=== PATIENT | female | born 1945 | race Caucasian/White ===

== ENCOUNTER → 2016-03-09 | Outpatient (CLI) | payer OTHER, MEDICARE | END | disposition home or self-care (01) | LOC: C.PAPS 13:44 | PROVIDERS: ATTEND Obstetrics & Gynecology | DX: Z12.4 Encounter for screening for malignant neoplasm of cervix (principal) ==

== ENCOUNTER → 2016-05-12 | Outpatient (CLI) | payer OTHER, MEDICARE ==
[2016-05-12 13:25] LABS: HEMATOCRIT 41.8 % (37-47); MEAN CELL VOLUME 93.3 fL (80-100); MEAN CORPUSCULAR HEMOGLOBIN 32.4 pg (25-34); MEAN CORPUSCULAR HGB CONC 34.7 g/dl (32-36); MEAN PLATELET VOLUME 11.5 fL (7.4-10.4); PLATELET COUNT 283 K/uL (130-400); RED BLOOD COUNT 4.48 M/uL (4.2-5.4)
[2016-05-12 13:42] LABS: ALT/SGPT 22 U/L (12-78); AST/SGOT 24 U/L (15-37); BLOOD UREA NITROGEN 15 mg/dl (7-18); BUN/CREATININE RATIO 14.7 (10-20); CALCIUM 9.3 mg/dl (8.5-10.1); CARBON DIOXIDE 23 mmol/L (21-32); CHLORIDE 109 mmol/L (98-107); CHOLESTEROL 219 mg/dl (0-200); GLUCOSE 88 mg/dl (70-99); SODIUM 142 mmol/L (136-145); TRIGLYCERIDES 139 mg/dl (0-150); URIC ACID 5.5 mg/dl (2.6-7.2); VERY LOW DENSITY LIPOPROT CALC 28 mg/dl
[2016-05-12 13:45] LABS: ALB/GLOB RATIO 0.8 (0.9-2); ALKALINE PHOSPHATASE 138 U/L (45-117); CHOLESTEROL/HDL RATIO 3.8; HDL CHOLESTEROL 58 mg/dl; LDL CHOLESTEROL CALCULATED 133 mg/dl
[2016-05-12 13:53] LABS: ESTIMATED AVERAGE GLUCOSE 111 mg/dl; HA1C FLAG Normal (Normal)
--- NOTE | 2016-05-19 07:33 | CODING QUERY MEDICAL NECESSITY ---
SUPPORTING DIAGNOSIS NEEDED A supporting diagnosis is required for the test/procedure performed on this patient in order for us to be reimbursed by the patient's insurance. Please provide a supporting diagnosis for the following test/procedure listed below next to the test name along with your signature. *If there is no additional diagnosis for this patient that would support the following test/procedure please document that below next to the test/procedure. Test(s)/Procedure(s) that require a supporting diagnosis: * VITAMIN D 25-HYDROXY DIAGNOSIS: * GLYCATED HEMOGLOBIN DIAGNOSIS: * DOS: 05/12/16 Provider Signature: Date: Thank you Lauren Man Health Information Management Once completed, please kindly fax back to [phone] For questions please call [phone]
== END | disposition home or self-care (01) ==
LOC: C.LABPBG 08:05
PROVIDERS: ATTEND Family Medicine
DX: Z00.00 Encounter for general adult medical examination without abnormal findings (principal)

== ENCOUNTER → 2016-12-14 | Outpatient (CLI) | payer OTHER, MEDICARE ==
--- NOTE | 2016-12-15 07:42 | MAMMOGRAPHY REPORT ---
BILATERAL DIGITAL SCREENING MAMMOGRAM TOMOSYNTHESIS WITH CAD: 12/14/2016 CLINICAL HISTORY: Routine screening. Patient has no complaints. TECHNIQUE: Breast tomosynthesis in addition to standard 2D mammography was performed. Current study was also evaluated with a Computer Aided Detection (CAD) system. COMPARISON: Comparison is made to exams dated: 12/11/2015 mammogram, 11/26/2014 mammogram, 05/17/2014 m ammogram, 09/21/2013 mammogram, 05/12/2011 mammogram, and 04/12/2009 mammogram - [facility]. BREAST COMPOSITION: There are scattered areas of fibroglandular density in both breasts. FINDINGS: There is a focal asymmetry in the upper outer middle one third of the left breast, with po ssible associated architectural distortion, for which additional spot compression tomosynthesis views and possible ultrasound are recommended. Otherwise, there is fluctuating nodularity in the breasts. Scattered benign-appearing calcifications . No other suspicious mass, architectural distortion or cluster of microcalcifications is seen. IMPRESSION: ACR BI-RADS CATEGORY 0: INCOMPLETE EVALUATION: NEED ADDITIONAL IMAGING EVALUATION The focal asymmetry with possible associated architectural distortion in the upper outer quadrant of the left breast needs additional evaluation. The patient will be called to schedule an appointment. Approximately 10% of breast cancers are not detected with mammography. A negative mammographic report should not delay biopsy if a clinically suggestive mass is present. Vielka Fitch M.D. ay/:12/14/2016 16:43:19 Waterproof Coating Machine Tender: Beckie DIXON(Jonnathan)(Brittanie), [facility] letter sent: Addl Imaging 0 BI-RADS Code: ACR BI-RADS Category 0: Incomplete Evaluation: Need Additional Imaging Evaluation
== END | disposition home or self-care (01) ==
LOC: C.MAMM 09:19
PROVIDERS: ATTEND Family Medicine
DX: Z12.31 Encounter for screening mammogram for malignant neoplasm of breast (principal); N64.89 Other specified disorders of breast; R92.8 Other abnormal and inconclusive findings on diagnostic imaging of breast

== ENCOUNTER → 2016-12-21 | Outpatient (CLI) | payer OTHER, MEDICARE ==
--- NOTE | 2016-12-21 13:34 | MAMMOGRAPHY REPORT ---
UNILATERAL LEFT DIGITAL DIAGNOSTIC MAMMOGRAM TOMOSYNTHESIS AND TARGETED LEFT ULTRASOUND: 12/21/2016 CLINICAL HISTORY: 71-year-old woman called back from screening mammography for a focal asymmetry with possible associated architectural distortion in the upper outer middle one third of the left breast. TECHNIQUE: Spot compression left CC and MLO views were obtained. COMPARISON: Comparison is made to exams dated: 12/14/2016 mammogram, 12/11/2015 mammogram, 11/26/2014 m ammogram, 05/17/2014 mammogram, 09/21/2013 mammogram, and 05/12/2011 mammogram - [facility]. BREAST COMPOSITION: There are scattered areas of fibroglandular density in the left breast. FINDINGS: There is a nodular asymmetry in the lateral, middle one third of the left breast best seen on the CC tomosynthesis images (slice 16/85). There is no definite persistent architectural distort ion in this projection. The asymmetry is seen near the bar of the spot compression paddle in the sli ghtly inferior middle one third of the left breast on the spot compression MLO view, but no definite persistent distortion is seen on those images either. No other focal area of distortion or suspiciou s spiculated or irregular mass is identified. There are stable circumscribed benign-appearing masses in the medial left breast. Further evaluation with ultrasound was performed. Targeted ultrasound was performed in the lateral left breast, approximate 3:00 and 4:00 axes. In the 3:00 left breast, 6 cm from the nipple, there is a grouping of anechoic benign simple cysts, measuri ng approximately 4.2 x 4.8 mm in conglomerate. These likely correspond to the nodular mammographic a symmetry and no distortion is appreciated near the cysts in real-time scanning. There is no evidence of a suspicious solid mass. IMPRESSION: ACR BI-RADS CATEGORY 2: BENIGN, TARGETED ULTRASOUND ACR BI-RADS CATEGORY 2: BENIGN There is no persistent architectural distortion with the asymmetry in the 3:00 middle one third of th e left breast mammographically, and a grouping of benign cysts is seen in the 3:00 left breast, 6 cm from the nipple on ultrasound. There is no evidence of a suspicious mass or suspicious area of archi tectural distortion. The cysts are considered benign and recommend routine screening tomosynthesis m ammography in one year. These results and recommendations were discussed with the patient at the time of the exam. Approximately 10% of breast cancers are not detected with mammography. A negative mammographic report should not delay biopsy if a clinically suggestive mass is present. Vielka Fitch M.D. ay/:12/21/2016 10:18:50 Ocular Care Aide: Beckie DIXON(R)(M), [facility] letter sent: Normal 1/2 BI-RADS Code: ACR BI-RADS Category 2: Benign Ultrasound BI-RADS: ACR BI-RADS Category 2: Benign
== END | disposition home or self-care (01) ==
LOC: C.MAMM 08:35
PROVIDERS: ATTEND Family Medicine
DX: N64.89 Other specified disorders of breast (principal); N60.02 Solitary cyst of left breast

== ENCOUNTER → 2017-05-13 | Outpatient (CLI) | payer OTHER, MEDICARE ==
[2017-05-13 12:38] LABS: HEMATOCRIT 44.6 % (37-47); HEMOGLOBIN 15.4 g/dL (12.0-16.0); MEAN CELL VOLUME 92.3 fL (80-100); MEAN CORPUSCULAR HEMOGLOBIN 31.9 pg (25-34); MEAN CORPUSCULAR HGB CONC 34.5 g/dl (32-36); MEAN PLATELET VOLUME 11.7 fL (7.4-10.4); PLATELET COUNT 301 K/uL (130-400); RED CELL DISTRIBUTION WIDTH CV 12.5 % (11.5-14.5); RED CELL DISTRIBUTION WIDTH SD 42.2 fL (36.4-46.3); WHITE BLOOD COUNT 6.02 K/uL (4.8-10.8)
[2017-05-13 16:37] LABS: BLOOD UREA NITROGEN 16 mg/dl (7-18); CALCIUM 9.5 mg/dl (8.5-10.1); CARBON DIOXIDE 23 mmol/L (21-32); CHOLESTEROL 233 mg/dl (0-200); CREATININE 0.98 mg/dl (0.60-1.20); GLUCOSE 89 mg/dl (70-99); POTASSIUM 4.4 mmol/L (3.5-5.1); SODIUM 138 mmol/L (136-145)
[2017-05-13 16:41] LABS: LDL CHOLESTEROL CALCULATED 151 mg/dl
== END | disposition home or self-care (01) ==
LOC: C.LABPBG 07:39
PROVIDERS: ATTEND Family Medicine
DX: Z11.59 Encounter for screening for other viral diseases (principal); E78.00 Pure hypercholesterolemia, unspecified; E55.9 Vitamin D deficiency, unspecified; M85.80 Other specified disorders of bone density and structure, unspecified site; Z00.00 Encounter for general adult medical examination without abnormal findings

== ENCOUNTER 2023-08-04 18:25 | Inpatient (IN) ==
--- NOTE | 2023-08-04 18:56 | ED Triage Note ---
Date of Service August 04, 2023 Provider in Triage Author: Cheri Bacon History of Present Illness This patient was briefly evaluated while in triage. An abbreviated physical exam was performed. This patient is a 77-year-old Female who presents to the ED for evaluation of nausea. She had knee surgery last week and has been sick off and on since then, but very bad today. Nausea, but no vomiting. Denies fevers, redness, or discharge from the knee. Denies chest pain or SOB. No pain in her abdomen. She changed pain medications, but it didn't help. Physical Exam GENERAL: Non-toxic and in no acute distress. HEENT: Pupils equal. No obvious scleral icterus. HEART: Regular rate and rhythm. LUNGS: Clear to auscultation. No accessory muscle use. ABDOMEN: Soft, non-tender to palpation. NEURO: Alert and oriented. No obvious neurological deficits on quick neuro exam. MUSCULOSKELETAL: Bandage on left knee without obvious erythema. Initial orders for labs and / or imaging were placed and patient was placed in the waiting area until a bed is available. Please see further documentation for the full ED course.
--- NOTE | 2023-08-04 19:21 | Emergency Department Note ---
Impression & Plan Nausea, Hyponatremia ED Provider Note CHIEF COMPLAINT: Nausea HISTORY OF PRESENTING ILLNESS: This 77-year-old female patient presents emergency department for evaluation of nausea. The patient had left knee surgery on 07/29/[address] Mo. She states that she had been having intermittent nausea since that time. They tried adjusting her pain medication without improvement - switched from oxycodone to Tramadol. She is also on Celebrex. Today she got much more severe nausea. She states that she is not able to vomit. She has been having some constipation and trouble moving her bowels since the surgery. Has not had a BM for the past 2 days, mostly leaking stools. The patient denies any chest pain or shortness of breath. She denies any abdominal pain, but states that it feels "weird" in her abdomen. REVIEW OF SYSTEMS: See HPI for pertinent positives and pertinent negatives. ALLERGIES: Sulfa MEDICATIONS: Celebrex, aspirin, Tramadol, Zofran - does not remember her other medications. PAST MEDICAL HISTORY: See below PHYSICAL EXAM: VITALS: Vitals are noted on the nurse's note and reviewed by myself. GENERAL: Non toxic, no acute distress, non-diaphoretic. SKIN: The patient has a vacuum dressing in place over the left knee. The drain has already fallen out. No obvious erythema or edema of the left lower extremity in the area visualized. Capillary refill <2 sec. EYES: PERRLA. EOMI. Conjunctivae without injection, sclerae without icterus. NOSE: Patent without discharge. MOUTH: Mucous membranes moist. Uvula midline. Airway patent. NECK: Supple without nuchal rigidity. HEART: Regular rate and rhythm without murmurs gallops or rubs. LUNGS: Clear to auscultation bilaterally without wheezes, rales or rhonchi. No retractions or accessory muscle use. ABDOMEN: Positive bowel sounds x 4. Normal tympanic percussion. Soft, minimally tender to palpation centrally. No masses or organomegaly. Quinones sign negative. No guarding or rebound tenderness. No focal RLQ or LLQ tenderness. MUSCULOSKELETAL: No significant tenderness to palpation of the left knee. No significant tenderness to palpation of the left lower extremity. No calf pain, tenderness, swelling, or cording. Negative Homans' sign. Peripheral pulses 2+. NEURO: Patient was alert and oriented. No focal neurological deficits. DIFFERENTIAL DIAGNOSIS: Differential diagnosis includes hepatitis, pancreatitis, cholecystitis, cholelithiasis, appendicitis, kidney stone, pyelonephritis, UTI, gastritis, gastroenteritis, mesenteric adenitis, obstruction, constipation, hernia, abdominal abscess, perforation, diverticulitis, IBD, ischemic colitis, abdominal aortic aneurysm, , ectopic , ovarian cyst, ovarian torsion, acute salpingitis, or others. ED COURSE AND MEDICAL DECISION MAKING: HISTORY FROM INDEPENDENT HISTORIAN: Additional history was obtained from the patient's . MONITOR: Continuous political science instructor: Order was placed for continuous political science instructor. Patient was placed on the political science instructor and continuous pulse ox. Patient was noted to be in normal sinus rhythm at an initial rate of 88 bpm per my interpretation. MEDICATIONS GIVEN: 700 mL normal saline solution bolus. Zofran 4 mg IV. Reglan 10 mg IV. Pepcid 20 mg IV. INTERPRETATION OF LABS: I interpreted the labs with full lab results as below in the lab section of this note. White blood cell count elevated at 12.34. Hemoglobin normal at 12.1. Platelet count elevated at 451. Sodium low at 126 and chloride 93. Glucose 116 and alk phos 156. CMP otherwise normal. Lipase normal. Urinalysis with trace ketones, but otherwise normal. INTERPRETATION OF IMAGING: Imaging studies were interpreted by myself and read by radiology as per the imaging section of this note. CT scan of the abdomen pelvis with IV contrast shows a moderate to large hiatal hernia as well as fluid and gas-filled small bowel loops which may represent enteritis in the appropriate clinical setting. No evidence for obstruction. CONSULTATIONS: On-call hospitalist MDM SUMMARY: The patient was seen during a time of extreme volume and extreme acuity. Nursing triage protocols were initiated with IV lock, labs, and/or imaging studies conducted by protocol in the triage area. The patient was initially evaluated in a triage room and then re-examined once they were taken back to an exam room. The patient had left knee surgery on 07/29/2023. She was initially discharged home with oxycodone, but then switched to tramadol due to nausea. She is also taking Celebrex. She was prescribed Zofran for the nausea, but continuing to have nausea. She is unable to vomit. Has also not been moving her bowels as well since the surgery. She denies any true abdominal pain, but states that her abdomen feels weird. She feels like the knee is healing well without problems. The patient was initially ordered 1 L of normal saline solution bolus. However, when her sodium came back low at 126, her IV fluids were stopped with 700 mL given to that point. The patient has not been eating or drinking well at home because of the nausea per her . The patient was medicated with IV Zofran, IV Reglan, and IV Pepcid with only minimal improvement of her nausea. The remainder of the laboratory studies as above. Urinalysis without evidence for UTI. CT scan of the abdomen and pelvis with IV contrast shows a moderate to large hiatal hernia as well as fluid and gas-filled small bowel loops which may represent an enteritis. However, the patient does not really have symptoms of enteritis at this time. The patient's symptoms may be secondary to her pain medication versus acid reflux from the Celebrex and her moderate to large hiatal hernia versus constipation contributing to the nausea and/or acid reflux versus other etiology. I do not feel the patient requires additional imaging in the ER at this time. I had a meaningful discussion about this patient with Dr. Moncada who agrees with my assessment and the treatment plan. I discussed admission with the patient due to her hyponatremia and nausea. Initially the patient thought she might want to be discharged home, but when her nausea was still not well- controlled, she requested admission. I spoke with the on-call hospitalist who agreed to admit the patient for further management. Please refer to their dictation for further details. The patient's care was transferred in stable condition. DIAGNOSIS: Nausea Hyponatremia Past Med/Surg History Problem List (Updated 08/05/23 @ 00:46 by Cheri Bacon PA-C) Hyponatremia (Acute) Nausea (Acute) Degenerative spondylolisthesis L4-5, L5-S1 Anterolisthesis of lumbar spine Left knee DJD Seborrheic keratoses Post-menopausal Actinic keratosis Spinal stenosis of lumbar region Following with pain management - s/p L5-S1 ELISE in 04/2023 T12 compression fracture 23 years ago Degenerative arthritis of lumbar spine Lumbar degenerative disc disease Hypertension pt denies - no medications Hypercholesteremia pt denies - no medications. Osteopenia Vitamin D deficiency Medical History History of COVID-2021: fatigued and cough at the time. Per patient- diagnosed by PCP with long covid- still experiencing occ fatigue and cough at times (improved from previous) Low back pain Surgical History S/P epidural steroid injection History of colonoscopy S/P cataract extraction bilateral S/P tonsillectomy Family History Father Emphysema lung Mother , Dec 2019 Diabetes Grandmother (Maternal) Diabetes Other No family history of adverse response to anesthesia Denies family history of Ovarian cancer Prostate cancer Myocardial infarction Breast cancer Colorectal cancer Social History Smoking Status: Never smoker Second Hand Exposure: No; Do You Dip or Chew Tobacco: No; Hx Alcohol Use: No Hx Substance Use: No Preferred Language: Ukrainian Communication Ability: Effective Visual Impairment: No Limitations Hearing Ability: Normal Software Tools Build Engineer Required: Yes Beliefs That Will Affect Care: None marital status: Current Living Situation: Spouse current occupational status: retired How many Children do You have: 4 Feels Safe at Home: Yes Safety Concerns: Feels Safe At This Time Childhood Exposure to Second-Hand Smoke: Yes Diet: regular Diet Comment: regular caffeine: Yes during the past year weight has: remained stable Dental Care, Regularly: Yes Physical Activity Frequency: Daily Seatbelt Use: always Sunscreen Use: Yes Assistive Devices: Cane and Denture - Upper Allergies Allergies Allergy/AdvReac Type Severity Reaction Status Date / Time Sulfa (Sulfonamide AdvReac Intermediate Gastrointestinal Verified 07/29/23 08:10 Antibiotics) Upset Home Meds Home Medications Medication Instructions Recorded Confirmed multivitamin 1 tab PO HS 02/11/19 08/04/23 docusate sodium 100 mg capsule 100 mg PO DAILY PRN Constipation 06/09/23 08/04/23 (Colace) acetaminophen 500 mg tablet 500 mg PO Q8 08/04/23 08/04/23 aspirin 81 mg tablet,delayed 81 mg PO BID 08/04/23 08/04/23 release celecoxib 200 mg capsule 200 mg PO BID 08/04/23 08/04/23 tramadol 50 mg tablet 50 mg PO Q4 PRN Pain 08/04/23 08/04/23 Previous Rx's Medication Instructions Recorded alendronate 70 mg tablet 70 mg PO WEEKLY #12 tabs 08/03/23 ondansetron 8 mg disintegrating 8 mg PO Q8H PRN nausea and 08/03/23 tablet vomiting #30 tabs Results & Data (ED) Vital Signs Vital Signs - 24 hr 08/04/23 18:54 08/04/23 20:18 08/04/23 22:00 Temperature 36.4 C L Temperature Source Temporal Artery Scan Pulse Rate 87 Pulse Rate [Finger] 82 69 Respiratory Rate 18 16 16 Respiratory Effort / Characteristics Non-Labored Non-Labored Non-Labored Respiratory Depth Normal Normal Normal Respiratory Pattern Regular Regular Blood Pressure 208/75 H Blood Pressure [Right Arm] 184/97 H 190/91 H Blood Pressure Mean 119 Blood Pressure Mean [Right Arm] 126 124 Blood Pressure Position [Right Arm] Lying Sitting Pulse Oximetry 97 92 93 Oxygen Delivery Method Room Air Room Air Room Air Sepsis Recent Fever Within 48 Hours No Sepsis New/Unexplained Change in Mental Status No Sepsis Action Taken by Nursing No Action Required Laboratory Data 08/04/23 19:39 08/04/23 19:39 Lab Results 08/04/23 Range/Units 19:39 WBC 12.34 H (4.8-10.8) K/ul RBC 3.96 L (4.20-5.40) M/uL Hgb 12.1 (12.0-16.0) g/dl Hct 35.5 L (37.0-47.0) % MCV 89.6 (80.0-100.0) fL MCH 30.6 (25.0-34.0) pg MCHC 34.1 (32.0-36.0) g/dL RDW Std Deviation 38.1 (36.4-46.3) fL RDW Coeff of Kenisha 11.7 (11.5-14.5) % Plt Count 451 H (130-400) K/uL MPV 10.8 (9.4-12.4) fL Immature Gran % (Auto) 0.2 % Neut % (Auto) 79.7 % Lymph % (Auto) 10.0 % [place] % (Auto) 8.7 % Eos % (Auto) 1.0 % Baso % (Auto) 0.4 % Neut # (Auto) 9.83 H (1.40-6.50) K/uL Lymph # (Auto) 1.24 (1.20-3.40) K/uL [place] # (Auto) 1.07 H (0.11-0.59) K/uL Eos # (Auto) 0.12 (0.00-0.50) K/uL Baso # (Auto) 0.05 (0.00-0.20) K/uL Immature Gran # (Auto) 0.03 (0.01-0.20) K/uL Sodium 126 L (136-145) mmol/L Potassium 4.2 (3.5-5.1) mmol/L Chloride 93 L (98-107) mmol/L Carbon Dioxide 23 (21-32) mmol/L Anion Gap 10 (3-11) BUN 17 (6-23) mg/dl Creatinine 0.86 (0.6-1.2) mg/dl Est Cr Clr Drug Dosing Not Reportable Est GFR ( Amer) 75.0 ml/min Est GFR (Non-Af Amer) 64.7 ml/min BUN/Creatinine Ratio 19.8 (10-20) Glucose 116 H (70-99(Fasting)) mg/dl Osmolality 269 L (280-300) mOsm/kg Calcium 9.0 (8.6-10.3) mg/dl Total Bilirubin 0.6 (0.2-1.0) mg/dl AST 18 (13-39) U/L ALT 14 (7-52) U/L Alkaline Phosphatase 156 H (34-104) U/L Total Protein 7.6 (6.0-8.3) gm/dl Albumin 3.6 (3.4-5.0) gm/dl Globulin 4.0 (2.5-4.0) gm/dl Albumin/Globulin Ratio 0.9 (0.9-2) Lipase 11 (11-82) U/L Administered Medications Potassium Chloride/Sodium Chloride (Normal Saline W/20 Meq Kcl) 20 meq in 1,000 mls @ 100 mls/hr IV .Q10H STA; Protocol Stop: 08/05/23 09:43 Last Admin: 08/04/23 23:54 Dose: 100 mls/hr Documented By: AAW Discontinued Medications Hydralazine HCl (Hydralazine Hcl 20 Mg/Ml Vial) 5 mg IV NOW STA Stop: 08/04/23 23:45 Last Admin: 08/04/23 23:54 Dose: 5 mg Documented By: CARIN Sodium Chloride (Nss) 1,000 mls @ 999 mls/hr IV .Q1H1M STA Stop: 08/04/23 19:56 Last Infusion: 08/04/23 20:38 Dose: Infused Documented By: Admin: 08/04/23 19:37 Dose: 999 mls/hr Documented By: LISA Famotidine (Pepcid 20mg Iv Push) 20 mg in 5 mls @ 2.5 mls/min IV NOW STA Stop: 08/04/23 22:09 Last Admin: 08/04/23 22:51 Dose: 2.5 mls/min Documented By: CARIN Ioversol (Optiray 320 100ml) 90 ml IV ONCE ONE Stop: 08/04/23 20:40 Last Admin: 08/04/23 20:39 Dose: 90 ml Documented By: TONE Metoclopramide HCl (Metoclopramide Hcl Inj 5 Mg/Ml 2 Ml Vial) 10 mg IV NOW STA Stop: 08/04/23 21:36 Last Admin: 08/04/23 21:45 Dose: 10 mg Documented By: CARIN Ondansetron HCl (Ondansetron Inj 2 Mg/Ml 2 Ml Vial) 4 mg IV NOW STA Stop: 08/04/23 18:57 Last Admin: 08/04/23 19:38 Dose: 4 mg Documented By: LISA Imaging Data Radiologist's Impression: Abdomen/Pelvis CT 08/04/23 19:38 Exam(s): CT ABDOMEN + PELVIS With Contrast IV Amt: 90 ml optiray 320 EXAM: CT Abdomen and Pelvis With Intravenous Contrast CLINICAL HISTORY: Reason for exam: abdominal pain, nausea. TECHNIQUE: Axial computed tomography images of the abdomen and pelvis with intravenous contrast. CTDI is 25.19 mGy and DLP is 1178.62 mGy-cm. Automated exposure control was utilized for the study. A dose lowering technique was utilized adhering to the principles of ALARA. CONTRAST: Patient received 90 ml optiray 320 of IV contrast COMPARISON: CT abdomen/pelvis on 05/19/2023 FINDINGS: Lung bases: Unremarkable. No mass. No consolidation. Mediastinum: Moderate to large hiatal hernia. ABDOMEN: Liver: Unremarkable. No mass. Gallbladder and bile ducts: Unremarkable. No calcified stones. No ductal dilation. Pancreas: Unremarkable. No mass. No ductal dilation. Spleen: Unremarkable. No splenomegaly. Adrenals: Unremarkable. No mass. Kidneys and ureters: Unremarkable. No hydronephrosis or obstructing ureteral stone. Stomach and bowel: Evaluation of the stomach is limited by underdistention. Diverticulosis without evidence of diverticulitis. No small bowel obstruction. Fluid and gas-filled small bowel loops may represent enteritis in the appropriate clinical setting. PELVIS: Appendix: Normal appendix. Bladder: Unremarkable. No mass. Reproductive: Unremarkable as visualized. ABDOMEN and PELVIS: Intraperitoneal space: Unremarkable. No free air. No significant fluid collection. Bones/joints: Degenerative changes of the spine. Chronic compression deformity of T12. Grade 1 anterolisthesis of L4 on L5 and L5 on S1. No dislocation. Soft tissues: Unremarkable. Vasculature: Mild atherosclerotic changes of the vasculature. No abdominal aortic aneurysm. Lymph nodes: Unremarkable. No enlarged lymph nodes. IMPRESSION: Moderate to large hiatal hernia. Fluid and gas-filled small bowel loops may represent enteritis in the appropriate clinical setting. Electronically signed by: Travis Bronson M.D. 08/04/23 21:20 PM Discharge Plan Visit Data Chief Complaint: Nausea Stated Complaint: NAUSEA ED Provider: Enrique Moncada ED Midlevel Provider: Cheri Bacon Discharge Problem: Nausea, Hyponatremia Discharge Instructions Interventions: ED Discharge Assessment Last Done: 08/05/23 00:14
[2023-08-04] MEDS: SODIUM CHLORIDE 0.9% 1,000 ML IV STA (19:37)
[2023-08-04] MEDS: ONDANSETRON INJ 2 MG/ML 2 ML VIAL IV STA (19:38)
[2023-08-04 19:54] LABS: Appearance Urine Clear (Clear); Bilirubin Urine Negative (Negative); Blood Urine Negative (Negative); Color Urine Yellow; Glucose Urine UA Negative (Negative); Ketones Urine Trace (Negative); Leukocyte Esterase Urine Negative (Negative); Nitrite Urine Negative (Negative); Protein Urine Negative (Negative); Specific Gravity Urine 1.022 (1.000-1.030); Urobilinogen Urine Negative (Negative); pH Urine 5.5 (4.5-7.5)
[2023-08-04 20:05] LABS: Basophils # (auto) 0.05 K/uL (0.00-0.20); Basophils % (auto) 0.4 %; Eosinophils # (auto) 0.12 K/uL (0.00-0.50); Hematocrit (blood only) 35.5 % (37.0-47.0); Hemoglobin 12.1 g/dl (12.0-16.0); Immature Granulocytes # (auto) 0.03 K/uL (0.01-0.20); Immature Granulocytes % (auto) 0.2 %; Lymphocytes # (auto) 1.24 K/uL (1.20-3.40); Mean Corpuscular Hemoglobin 30.6 pg (25.0-34.0); Mean Corpuscular Hgb Conc 34.1 g/dL (32.0-36.0); Mean Corpuscular Volume 89.6 fL (80.0-100.0); Mean Platelet Volume 10.8 fL (9.4-12.4); Monocytes # (auto) 1.07 K/uL (0.11-0.59); Monocytes % (auto) 8.7 %; Neutrophils # (auto) 9.83 K/uL (1.40-6.50); Neutrophils % (auto) 79.7 %; Platelet Count 451 K/uL (130-400); RDW Coefficient of Variation 11.7 % (11.5-14.5); RDW Standard Deviation 38.1 fL (36.4-46.3); Red Blood Count 3.96 M/uL (4.20-5.40); White Blood Count 12.34 K/ul (4.8-10.8)
[2023-08-04 20:13] LABS: Alanine Aminotransferase 14 U/L (7-52); Albumin Globulin Ratio 0.9 (0.9-2); Albumin Level 3.6 gm/dl (3.4-5.0); Alkaline Phosphatase 156 U/L (34-104); Anion Gap 10 (3-11); Aspartate Aminotransferase 18 U/L (13-39); BUN Creatinine Ratio 19.8 (10-20); Bilirubin,Total 0.6 mg/dl (0.2-1.0); Blood Urea Nitrogen 17 mg/dl (6-23); Carbon Dioxide 23 mmol/L (21-32); Chloride 93 mmol/L (98-107); Est GFR (Non-African American) 64.7 ml/min; Glucose 116 mg/dl (70-99(Fasting)); Lipase 11 U/L (11-82); Potassium 4.2 mmol/L (3.5-5.1); Sodium 126 mmol/L (136-145); Total Protein 7.6 gm/dl (6.0-8.3)
[2023-08-04] MEDS: OPTIRAY 320 100ml IV ONE (20:39)
--- NOTE | 2023-08-04 21:21 | CT Scan Report ---
Exam(s): CT ABDOMEN + PELVIS With Contrast IV Amt: 90 ml optiray 320 EXAM: CT Abdomen and Pelvis With Intravenous Contrast CLINICAL HISTORY: Reason for exam: abdominal pain, nausea. TECHNIQUE: Axial computed tomography images of the abdomen and pelvis with intravenous contrast. CTDI is 25.19 mGy and DLP is 1178.62 mGy-cm. Automated exposure control was utilized for the study. A dose lowering technique was utilized adhering to the principles of ALARA. CONTRAST: Patient received 90 ml optiray 320 of IV contrast COMPARISON: CT abdomen/pelvis on 05/19/2023 FINDINGS: Lung bases: Unremarkable. No mass. No consolidation. Mediastinum: Moderate to large hiatal hernia. ABDOMEN: Liver: Unremarkable. No mass. Gallbladder and bile ducts: Unremarkable. No calcified stones. No ductal dilation. Pancreas: Unremarkable. No mass. No ductal dilation. Spleen: Unremarkable. No splenomegaly. Adrenals: Unremarkable. No mass. Kidneys and ureters: Unremarkable. No hydronephrosis or obstructing ureteral stone. Stomach and bowel: Evaluation of the stomach is limited by underdistention. Diverticulosis without evidence of diverticulitis. No small bowel obstruction. Fluid and gas-filled small bowel loops may represent enteritis in the appropriate clinical setting. PELVIS: Appendix: Normal appendix. Bladder: Unremarkable. No mass. Reproductive: Unremarkable as visualized. ABDOMEN and PELVIS: Intraperitoneal space: Unremarkable. No free air. No significant fluid collection. Bones/joints: Degenerative changes of the spine. Chronic compression deformity of T12. Grade 1 anterolisthesis of L4 on L5 and L5 on S1. No dislocation. Soft tissues: Unremarkable. Vasculature: Mild atherosclerotic changes of the vasculature. No abdominal aortic aneurysm. Lymph nodes: Unremarkable. No enlarged lymph nodes. IMPRESSION: Moderate to large hiatal hernia. Fluid and gas-filled small bowel loops may represent enteritis in the appropriate clinical setting. Electronically signed by: Travis Bronson M.D. 08/04/23 21:20 PM
[2023-08-04] MEDS: METOCLOPRAMIDE HCL INJ 5 MG/ML 2 ML VIAL IV STA (21:45)
--- NOTE | 2023-08-04 22:46 | Emergency Department Note ---
ED Visit Note I was consulted in regards to the patient's presentation and plan of care by the Advanced Practice Provider. I engaged in a detailed/meaningful discussion with the Advanced Practice Provider in regards to this patient's workup and plan of care. Please see the Advanced Practice Provider's note for full details of the patient encounter. I agree with the assessment and plan of Cheri Bacon PA-C. Enrique Moncada, DO Emergency Medicine .
[2023-08-04] MEDS: FAMOTIDINE 20MG IV PUSH 20 MG/5 ML SYR IV STA (22:51)
--- NOTE | 2023-08-04 23:38 | History & Physical Report ---
Date of Service August 04, 2023 Assessment & Plan (1) Hyponatremia: (2) Nausea: (3) Spinal stenosis of lumbar region: (4) Hypertension: (5) Status post left knee replacement: Plan Hyponatremia- Sodium 126 on admission, with base 138 Serum osmolality 269 Urine osmolality 522 She looks clinically dry, reports feeling better after getting 1 L normal saline from the ED Placed on NSS + KCl 20 mEq at 100 mL/h x 1 L There are a number of abnormal electrolytes and related studies in the ED this evening, and I am not convinced that her values are abnormal Will treat her on a clinical basis associated with decreased oral intake and nausea Repeat laboratories in the a.m. Received Zofran 4 mg IV, Reglan 10 mg IV and famotidine 20 mg IV while in the ED Constipation- Was initially on oxycodone, and was converted to tramadol by outpatient orthopedics Acetaminophen 500 mg every 8 hours standing order Tramadol 50 mg every 4 hours as needed for moderate pain CT scan abdomen pelvis suggests fluid and gas-filled small bowel loops may represent enteritis in the appropriate clinical setting, but in her case is more likely associated with use of MiraLAX Resume regular diet in the morning Hypertension- Patient reports a history of hypertension, has not been on any medications Blood pressure 208/75, with heart rate 65, with pain controlled There may be an anxiety component to this as well Hydralazine 5 mg IV every 4 hours as needed for systolic blood pressure above 160 This will need to be followed in the outpatient setting. Status post left TKA- Surgery on 07/28 and reports that she is doing well She will continue usual PT per orthopedic guidance History of Present Illness Chief Complaint: The patient presents to the emergency department due to complaint of constipation and nausea, now with loose stools after use of MiraLAX, having been status post left TKA on 07/[address] Mo, presently on tramadol Primary Care Provider: Shefali Mauro DO The patient is a 77-year-old female with a past medical history including degenerative spondylolisthesis anterolisthesis of lumbar spine, lumbar spine stenosis, T12 compression fracture, lumbar degenerative disc disease, hypertension, hypercholesterolemia, osteopenia, vitamin D deficiency and status post left TKA as noted on 07/28. The patient reports that she is doing well with her left knee, and went to physical therapy today and did well. She notes that she had nausea without vomiting and constipation the day following surgery, for which she took MiraLAX the following day, and also took MiraLAX 2 days after that, each time having resultant large loose bowel movements. She presents to the ED today with concerns regarding nausea, with decreased oral intake. Those symptoms had improved with IV fluids in the ED, however, laboratories performed showed a sodium of 126, and she was referred for evaluation for admission Allergies Allergy/AdvReac Type Severity Reaction Status Date / Time Sulfa (Sulfonamide AdvReac Intermediate Gastrointestinal Verified 07/29/23 08:10 Antibiotics) Upset Home Medications Medication Instructions Recorded Confirmed Type multivitamin 1 tab PO HS 02/11/19 08/04/23 History docusate sodium 100 mg capsule 100 mg PO DAILY PRN Constipation 06/09/23 08/04/23 History (Colace) alendronate 70 mg tablet 70 mg PO WEEKLY #12 tabs 08/03/23 08/04/23 Rx ondansetron 8 mg disintegrating 8 mg PO Q8H PRN nausea and 08/03/23 08/04/23 Rx tablet vomiting #30 tabs acetaminophen 500 mg tablet 500 mg PO Q8 08/04/23 08/04/23 History aspirin 81 mg tablet,delayed 81 mg PO BID 08/04/23 08/04/23 History release celecoxib 200 mg capsule 200 mg PO BID 08/04/23 08/04/23 History tramadol 50 mg tablet 50 mg PO Q4 PRN Pain 08/04/23 08/04/23 History Past Med/Surg History Problem List (Updated 08/05/23 @ 00:46 by Cheri Bacon PA-C) Status post left knee replacement Hyponatremia (Acute) Nausea (Acute) Degenerative spondylolisthesis L4-5, L5-S1 Anterolisthesis of lumbar spine Left knee DJD Seborrheic keratoses Post-menopausal Actinic keratosis Spinal stenosis of lumbar region Following with pain management - s/p L5-S1 ELISE in 04/2023 T12 compression fracture 23 years ago Degenerative arthritis of lumbar spine Lumbar degenerative disc disease Hypertension pt denies - no medications Hypercholesteremia pt denies - no medications. Osteopenia Vitamin D deficiency Medical History History of COVID-2021: fatigued and cough at the time. Per patient- diagnosed by PCP with long covid- still experiencing occ fatigue and cough at times (improved from previous) Low back pain Surgical History S/P epidural steroid injection History of colonoscopy S/P cataract extraction bilateral S/P tonsillectomy Family History Father Emphysema lung Mother , Dec 2019 Diabetes Grandmother (Maternal) Diabetes Other No family history of adverse response to anesthesia Denies family history of Ovarian cancer Prostate cancer Myocardial infarction Breast cancer Colorectal cancer Social History Smoking Status: Never smoker Second Hand Exposure: No; Do You Dip or Chew Tobacco: No; Hx Alcohol Use: No Hx Substance Use: No Preferred Language: Kittitian Communication Ability: Effective Visual Impairment: No Limitations Hearing Ability: Normal 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 Beliefs That Will Affect Care: None marital status: Current Living Situation: Spouse current occupational status: retired How many Children do You have: 4 Feels Safe at Home: Yes Safety Concerns: Feels Safe At This Time Childhood Exposure to Second-Hand Smoke: Yes Diet: regular Diet Comment: regular caffeine: Yes during the past year weight has: remained stable Dental Care, Regularly: Yes Physical Activity Frequency: Daily Seatbelt Use: always Sunscreen Use: Yes Assistive Devices: Cane and Denture - Upper Review of Systems Review of Systems: The patient denies chest pain, palpitations, shortness of breath, dyspnea on exertion, cough, sore throat, fevers, chills, sweats, vomiting, blood in urine or stool, dysuria, urinary frequency or urgency, lightheadedness, dizziness, headache, memory loss, loss of consciousness, rash, abnormal bruising or bleeding, imbalance, focal or generalized weakness, numbness or tingling in arms or legs, generalized arthralgias or myalgias, back or neck pain, or night sweats. The review of systems is otherwise negative other than for that already noted above, and at least 10 systems have been reviewed. Physical Exam Physical Exam: The patient is awake, alert and oriented 3, well developed and well nourished, normocephalic and atraumatic, lying in bed and in no acute distress. HEENT--PERRL, EOMI, mucous membranes and oropharynx dry. Neck--supple. No JVD. No bruits. Thyroid normal, trachea midline, no adenopathy. Heart--normal S1 and S2. No murmurs, rubs or gallops. Lungs--clear bilaterally, no respiratory distress, no accessory muscle use. Abdomen--normal bowel sounds and soft. Nontender. Nondistended, no hernias or masses, no organomegaly. Extremities--no cyanosis or clubbing. No edema. There are good distal pulses b/l. Dermatologic--normal skin turgor, normal color, no abnormal lymph nodes, no rash. Neurologic--cranial nerves II through XII grossly intact. Rheumatologic--normal range of motion. Psychiatric--normal affect. Results & Data Results & Data Vital Signs (Past 12 Hours) Vital Signs Temp Pulse Pulse Resp BP BP Pulse Ox 08/04/23 22:00 69 16 190/91 H 93 08/04/23 20:18 82 16 184/97 H 92 08/04/23 18:54 36.4 C L 87 18 208/75 H 97 O2 Del Method 08/04/23 22:00 Room Air 08/04/23 20:18 Room Air 08/04/23 18:54 Room Air Laboratory Results Laboratory Results WBC 12.34 K/ul (4.8-10.8) H 08/04/23 19:39 RBC 3.96 M/uL (4.20-5.40) L 08/04/23 19:39 Hgb 12.1 g/dl (12.0-16.0) 08/04/23 19:39 Hct 35.5 % (37.0-47.0) L 08/04/23 19:39 MCV 89.6 fL (80.0-100.0) 08/04/23 19:39 MCH 30.6 pg (25.0-34.0) 08/04/23 19:39 MCHC 34.1 g/dL (32.0-36.0) 08/04/23 19:39 RDW Std Deviation 38.1 fL (36.4-46.3) 08/04/23 19:39 RDW Coeff of Kenisha 11.7 % (11.5-14.5) 08/04/23 19:39 Plt Count 451 K/uL (130-400) H 08/04/23 19:39 MPV 10.8 fL (9.4-12.4) 08/04/23 19:39 Immature Gran % (Auto) 0.2 % 08/04/23 19:39 Neut % (Auto) 79.7 % 08/04/23 19:39 Lymph % (Auto) 10.0 % 08/04/23 19:39 Sauk % (Auto) 8.7 % 08/04/23 19:39 Eos % (Auto) 1.0 % 08/04/23 19:39 Baso % (Auto) 0.4 % 08/04/23 19:39 Neut # (Auto) 9.83 K/uL (1.40-6.50) H 08/04/23 19:39 Lymph # (Auto) 1.24 K/uL (1.20-3.40) 08/04/23 19:39 Sauk # (Auto) 1.07 K/uL (0.11-0.59) H 08/04/23 19:39 Eos # (Auto) 0.12 K/uL (0.00-0.50) 08/04/23 19:39 Baso # (Auto) 0.05 K/uL (0.00-0.20) 08/04/23 19:39 Immature Gran # (Auto) 0.03 K/uL (0.01-0.20) 08/04/23 19:39 Sodium 126 mmol/L (136-145) L 08/04/23 19:39 Potassium 4.2 mmol/L (3.5-5.1) 08/04/23 19:39 Chloride 93 mmol/L (98-107) L 08/04/23 19:39 Carbon Dioxide 23 mmol/L (21-32) 08/04/23 19:39 Anion Gap 10 (3-11) 08/04/23 19:39 BUN 17 mg/dl (6-23) 08/04/23 19:39 Creatinine 0.86 mg/dl (0.6-1.2) 08/04/23 19:39 Est Cr Clr Drug Dosing Not Reportable 08/04/23 19:39 Est GFR ( Amer) 75.0 ml/min 08/04/23 19:39 Est GFR (Non-Af Amer) 64.7 ml/min 08/04/23 19:39 BUN/Creatinine Ratio 19.8 (10-20) 08/04/23 19:39 Glucose 116 mg/dl (70-99(Fasting)) H 08/04/23 19:39 Osmolality 269 mOsm/kg (280-300) L 08/04/23 19:39 Calcium 9.0 mg/dl (8.6-10.3) 08/04/23 19:39 Total Bilirubin 0.6 mg/dl (0.2-1.0) 08/04/23 19:39 AST 18 U/L (13-39) 08/04/23 19:39 ALT 14 U/L (7-52) 08/04/23 19:39 Alkaline Phosphatase 156 U/L (34-104) H 08/04/23 19:39 Total Protein 7.6 gm/dl (6.0-8.3) 08/04/23 19:39 Albumin 3.6 gm/dl (3.4-5.0) 08/04/23 19:39 Globulin 4.0 gm/dl (2.5-4.0) 08/04/23 19:39 Albumin/Globulin Ratio 0.9 (0.9-2) 08/04/23 19:39 Lipase 11 U/L (11-82) 08/04/23 19:39 Urine Color Yellow 08/04/23 Unknown Urine Appearance Clear (Clear) 08/04/23 Unknown Urine pH 5.5 (4.5-7.5) 08/04/23 Unknown Ur Specific Canvas 1.022 (1.000-1.030) 08/04/23 Unknown Urine Protein Negative (Negative) 08/04/23 Unknown Urine Glucose (UA) Negative (Negative) 08/04/23 Unknown Urine Ketones Trace (Negative) H 08/04/23 Unknown Urine Blood Negative (Negative) 08/04/23 Unknown Urine Nitrite Negative (Negative) 08/04/23 Unknown Urine Bilirubin Negative (Negative) 08/04/23 Unknown Urine Urobilinogen Negative (Negative) 08/04/23 Unknown Ur Leukocyte Esterase Negative (Negative) 08/04/23 Unknown Urine Osmolality 522 mOsm/kg (500-800) 08/04/23 Unknown Impressions Abdomen/Pelvis CT 08/04/23 19:38 Exam(s): CT ABDOMEN + PELVIS With Contrast IV Amt: 90 ml optiray 320 EXAM: CT Abdomen and Pelvis With Intravenous Contrast CLINICAL HISTORY: Reason for exam: abdominal pain, nausea. TECHNIQUE: Axial computed tomography images of the abdomen and pelvis with intravenous contrast. CTDI is 25.19 mGy and DLP is 1178.62 mGy-cm. Automated exposure control was utilized for the study. A dose lowering technique was utilized adhering to the principles of ALARA. CONTRAST: Patient received 90 ml optiray 320 of IV contrast COMPARISON: CT abdomen/pelvis on 05/19/2023 FINDINGS: Lung bases: Unremarkable. No mass. No consolidation. Mediastinum: Moderate to large hiatal hernia. ABDOMEN: Liver: Unremarkable. No mass. Gallbladder and bile ducts: Unremarkable. No calcified stones. No ductal dilation. Pancreas: Unremarkable. No mass. No ductal dilation. Spleen: Unremarkable. No splenomegaly. Adrenals: Unremarkable. No mass. Kidneys and ureters: Unremarkable. No hydronephrosis or obstructing ureteral stone. Stomach and bowel: Evaluation of the stomach is limited by underdistention. Diverticulosis without evidence of diverticulitis. No small bowel obstruction. Fluid and gas-filled small bowel loops may represent enteritis in the appropriate clinical setting. PELVIS: Appendix: Normal appendix. Bladder: Unremarkable. No mass. Reproductive: Unremarkable as visualized. ABDOMEN and PELVIS: Intraperitoneal space: Unremarkable. No free air. No significant fluid collection. Bones/joints: Degenerative changes of the spine. Chronic compression deformity of T12. Grade 1 anterolisthesis of L4 on L5 and L5 on S1. No dislocation. Soft tissues: Unremarkable. Vasculature: Mild atherosclerotic changes of the vasculature. No abdominal aortic aneurysm. Lymph nodes: Unremarkable. No enlarged lymph nodes. IMPRESSION: Moderate to large hiatal hernia. Fluid and gas-filled small bowel loops may represent enteritis in the appropriate clinical setting. Electronically signed by: Travis Bronson M.D. 08/04/23 21:20 PM Code Status & VTE Plan Code Status Full code VTE Prophylaxis Plan VTE Prophylaxis will be ordered: Yes PG Care Time/CCT Total # of Minutes Spent Total Time Spent with Patient: Total time spent is greater than 50% in coordination of care (as documented) at patient's floor/unit and/or counseling patient: Coding Level of Care Code 95705 INT INP/OBS CARE 3/75MIN Diagnoses Hyponatremia E87.1 Nausea R11.0 Spinal stenosis of lumbar region with neurogenic claudication M48.062 Neurogenic claudication status: with neurogenic claudication Primary hypertension I10 Hypertension type: primary hypertension Status post left knee replacement Z96.652 (3) Spinal stenosis of lumbar region Neurogenic claudication status: with neurogenic claudication Qualified Code(s): M48.062 - Spinal stenosis, lumbar region with neurogenic claudication (4) Hypertension Hypertension type: primary hypertension Qualified Code(s): I10 - Essential (primary) hypertension
[2023-08-04] MEDS: hydrALAZINE HCL 20 MG/ML VIAL IV STA (23:54)
[2023-08-04] MEDS: NSS + 20MEQ KCL 20 MEQ/1,000 ML BAG IV STA (23:54)
[2023-08-05] MEDS ORDERED: DOCUSATE SODIUM 100 MG CAP PO PRN (00:13)
[2023-08-05] MEDS ORDERED: ONDANSETRON 8MG OD TAB PO PRN (00:13)
[2023-08-05] MEDS ORDERED: traMADol HCL 50 MG TABLET PO PRN (00:13)
[2023-08-05] MEDS ORDERED: ONDANSETRON 4 MG OD TAB PO PRN (00:27)
[2023-08-05] MEDS ORDERED: hydrALAZINE HCL 20 MG/ML VIAL IV PRN (04:00)
[2023-08-05 05:08] LABS: Albumin Globulin Ratio 0.9 (0.9-2); Albumin Level 3.1 gm/dl (3.4-5.0); BUN Creatinine Ratio 17.5 (10-20); Bilirubin,Total 0.5 mg/dl (0.2-1.0); Calcium 8.3 mg/dl (8.6-10.3); Creatinine Clr Calc Pharmacy 58.2 ml/min; Est GFR (African American) 81.8 ml/min; Est GFR (Non-African American) 70.6 ml/min; Globulin 3.5 gm/dl (2.5-4.0); Magnesium 2.1 mg/dl (1.7-2.4); Potassium 3.9 mmol/L (3.5-5.1); Total Protein 6.6 gm/dl (6.0-8.3)
[2023-08-05 05:09] LABS: Basophils # (auto) 0.04 K/uL (0.00-0.20); Basophils % (auto) 0.4 %; Eosinophils # (auto) 0.06 K/uL (0.00-0.50); Eosinophils % (auto) 0.6 %; Hematocrit (blood only) 30.6 % (37.0-47.0); Hemoglobin 10.5 g/dl (12.0-16.0); Immature Granulocytes # (auto) 0.03 K/uL (0.01-0.20); Immature Granulocytes % (auto) 0.3 %; Lymphocytes % (auto) 14.7 %; Mean Corpuscular Hemoglobin 30.7 pg (25.0-34.0); Mean Corpuscular Hgb Conc 34.3 g/dL (32.0-36.0); Mean Corpuscular Volume 89.5 fL (80.0-100.0); Mean Platelet Volume 10.6 fL (9.4-12.4); Monocytes # (auto) 1.44 K/uL (0.11-0.59); Monocytes % (auto) 13.2 %; Neutrophils # (auto) 7.71 K/uL (1.40-6.50); Neutrophils % (auto) 70.8 %; Platelet Count 397 K/uL (130-400); RDW Coefficient of Variation 11.7 % (11.5-14.5); RDW Standard Deviation 37.7 fL (36.4-46.3); Red Blood Count 3.42 M/uL (4.20-5.40); White Blood Count 10.88 K/ul (4.8-10.8)
[2023-08-05] MEDS: ACETAMINOPHEN 500 MG TAB PO SCH (06:11)
[2023-08-05] MEDS: ASPIRIN 81 MG ECTAB PO SCH (08:24)
--- NOTE | 2023-08-05 10:43 | Discharge Summary ---
Date of Service August 05, 2023 Admission HPI Per Admitting Provider The patient is a 77-year-old female with a past medical history including degenerative spondylolisthesis anterolisthesis of lumbar spine, lumbar spine stenosis, T12 compression fracture, lumbar degenerative disc disease, hypertension, hypercholesterolemia, osteopenia, vitamin D deficiency and status post left TKA as noted on 07/28. The patient reports that she is doing well with her left knee, and went to physical therapy today and did well. She notes that she had nausea without vomiting and constipation the day following surgery, for which she took MiraLAX the following day, and also took MiraLAX 2 days after th at, each time having resultant large loose bowel movements. She presents to the ED today with concerns regarding nausea, with decreased oral intake. Those symptoms had improved with IV fluids in the ED, however, laboratories performed showed a sodium of 126, and she was referred for evaluation for admission Principal Diagnosis Constipation from narcotics causing nausea and vomiting, mild hyponatremia Discharge Exam General-alert and oriented x3, no fever, no chills HEENT-head atraumatic and normocephalic, pupils equal and reactive to light, extraocular muscles intact Neck-no lymphadenopathy or thyromegaly, trachea midline Chest-clear to auscultation. No rales, wheezing or rhonchi Cardiac-regular rate and rhythm, normal S1 and S2 Abdomen-normal bowel sounds, no hepatosplenomegaly Extremities-no cyanosis, clubbing, or edema. Recent left total knee arthroplasty healing without incident Neuro-cranial nerves II through XII intact, motor and sensory function within normal limits, strength symmetrical, no focal deficits Psych-normal affect, normal mood Discharge Data Allergies Allergy/AdvReac Type Severity Reaction Status Date / Time Sulfa (Sulfonamide AdvReac Intermediate Gastrointestinal Verified 07/29/23 08:10 Antibiotics) Upset Consultations 08/04/23 22:51 ED Decision to Admit Stat Ordered Studies 08/04/23 19:38 CT abd pelvis IV con only Stat Hospital Course (1) Constipation: Present on admission. Likely cause of nausea and vomiting. Probably from narcotics taken after recent left total knee arthroplasty. Now resolved after MiraLAX treatment in the ED (2) Hyponatremia: Mild on admission. Asymptomatic. Now resolved (3) Nausea: Resolved (4) Hypertension: Stable. Continue current medical management (5) Status post left knee replacement: Last week. She was taking narcotics and this likely caused the constipation leading to the nausea and vomiting which are now resolved Plan Home today, August 04 Total Time Total Time Spent Total Time Spent (In Minutes): 45 minutes Discharge Plan Discharge Items Patient Disposition: Home - Self-Care Reason For Visit: NAUSEA, ENERITIS, HYPONATREMIA Discharge Diagnosis: Constipation with associated nausea and vomiting, mild hyponatremia Activity: Resume your previous activity Non-emergency contact: Primary Care Provider Call non-emergency contact if: your symptoms worsen Follow-up/Referrals: Shefali Mauro, [Primary Care Provider] - Diet: Regular and Heart Healthy Addtl Attending Provider Instructions: Take MiraLAX daily to prevent recurrent constipation. All other medications remain the same Pending Studies at Discharge: No Stand-Alone Forms: My [facility] [place], Smoking Cessation Medications and DC Order Prescriptions: New polyethylene glycol 3350 [Miralax] 17 gram/dose powder 17 g PO DAILY Qty: 119 0RF Continued alendronate 70 mg tablet 70 mg PO WEEKLY Qty: 12 1RF ondansetron 8 mg tablet,disintegrating 8 mg PO Q8H PRN (Reason: nausea and vomiting) Qty: 30 0RF multivitamin Tablet 1 tab PO HS docusate sodium [Colace] 100 mg Capsule 100 mg PO DAILY PRN (Reason: Constipation) celecoxib 200 mg capsule 200 mg PO BID aspirin 81 mg tablet,delayed release (DR/EC) 81 mg PO BID tramadol 50 mg tablet 50 mg PO Q4 PRN (Reason: Pain) acetaminophen 500 mg tablet 500 mg PO Q8 Discharge Orders: Discharge Order (Routine); Ordered 08/05/23 Ordered By: Jaime Hunter Admission Data Admit Date/Time: 08/04/23 23:38 Attending Provider: Jaime Hunter Admit Provider: Akbar Zapien Primary Care Provider: Shefali Mauro Other Providers: Akbar Zapien Coding Level of Care Code 68269 INP/OBS DISCH >30 MIN Diagnoses Constipation K59.00 Hyponatremia E87.1 Nausea R11.0 Primary hypertension I10 Hypertension type: primary hypertension Status post left knee replacement Z96.652
[2023-08-05] MEDS ORDERED: MULTIVITAMIN TAB PO SCH (21:00)
== END 2023-08-05 11:35 | disposition home or self-care (01) | DRG 641 ==
LOC: ED 18:25 → OBSVTOIN 23:38 → EDINP 23:38 → INTOOBSV 23:38 → SUATTDRO 23:38 → EDINP 08-05 00:14